=== PATIENT | male | born 1950 | race African-American/Black ===

== ENCOUNTER 2016-07-16 00:07 | Inpatient (IN) | payer OTHER ==
[2016-07-16 00:26] VITALS: BMI 31.7
--- NOTE | 2016-07-16 00:38 | PDOC ---
History of Present Illness - General History Source: Patient Exam Limitations: No Limitations - History of Present Illness Initial Comments: 07/16/16 00:46 The patient is a 65 year old male with significant past medical history of ME on brilinta, hypertension, hyperlipidemia, and diabetes who presents to the ED for chest pain prior to arrival. Patient reports he was eating around 10:30 pm and subsequently developed chest pain. He describes his chest pain as a 5/10 and pressure-like sensation at the midepigastric area radiating down the left arm. States he is compliant with his medications. Patient denies lightheadedness , diaphoresis, palpitations, SOB, jaw pain, leg swelling, nausea, or vomiting. The patient denies fever, chills, cough, and diarrhea. Allergies: NKDA Social History: No alcohol, tobacco, or drug use reported. Past Surgical History: None reported PCP: Dr. Marc Edgar <Misty Del Rio - Last Filed: 07/16/16 00:46> - General History Source: Patient <Romel Gordon - Last Filed: 07/16/16 19:26> - General Stated Complaint: CHEST PAIN, BLOOD SUGAR PROBLEM Time Seen by Provider: 07/16/16 00:34 Past History <Misty Del Rio - Last Filed: 07/16/16 00:46> - Past Medical History Diabetes: Yes HTN: Yes Hypercholesterolemia: Yes - Psycho/Social/Smoking Cessation Hx Suicidal Ideation: No Smoking History: Unknown if ever smoked Hx Alcohol Use: No Drug/Substance Use Hx: No <Romel Gordon - Last Filed: 07/16/16 19:26> - Past Medical History Allergies/Adverse Reactions: Allergies Allergy/AdvReac Type Severity Reaction Status Date / Time No Known Allergies Allergy Verified 01/23/16 04:03 Home Medications: Ambulatory Orders Amlodipine/Valsartan [Exforge 10-160 mg Tablet] 1 tab PO DAILY 01/23/16 Aspirin [ASA -] 162 mg PO DAILY 01/23/16 Atorvastatin Ca [Lipitor] 40 mg PO HS 01/23/16 Carvedilol [Coreg] 12.5 mg PO BID 01/23/16 Ranolazine [Ranexa] 1,000 mg PO BID 01/23/16 Sitagliptin Phosphate [Januvia] 100 mg PO DAILY 01/23/16 Ticagrelor [Brilinta] 90 mg PO BID 01/23/16 Glyburide/Metformin HCl [Glyburide-Metformin 5-500 mg] 1 tab PO BID 07/16/16 Review of Systems - Review of Systems Able to Perform ROS?: Yes Comments:: 07/16/16 00:46 CONSTITUTIONAL: Absent: fever, chills, diaphoresis, generalized weakness, malaise, loss of appetite HEENT: Absent: rhinorrhea, nasal congestion, throat pain, throat swelling, difficulty swallowing, mouth swelling, ear pain, eye pain, visual Changes CARDIOVASCULAR: +chest pain radiating down the left arm Absent: syncope, palpitations, irregular heart rate, lightheadedness, peripheral edema RESPIRATORY: Absent: cough, shortness of breath, dyspnea with exertion, orthopnea, wheezing, stridor, hemoptysis GASTROINTESTINAL: +epigastric discomfort Absent: abdominal distension, nausea, vomiting, diarrhea , constipation, melena, hematochezia GENITOURINARY: Absent: dysuria, frequency, urgency, hesitancy, hematuria, flank pain, genital pain MUSCULOSKELETAL: Absent: arthralgia, joint swelling SKIN: Absent: rash, itching, pallor NEUROLOGIC: Absent: headache, focal weakness or paresthesias, dizziness, unsteady gait, seizure, mental status changes, bladder or bowel incontinence <Misty Del Rio - Last Filed: 07/16/16 00:46> *Physical Exam - Vital Signs Last Vital Signs Temp Pulse Resp BP Pulse Ox 97.5 F L 75 16 172/92 99 07/16/16 00:10 07/16/16 00:10 07/16/16 00:10 07/16/16 00:10 07/16/16 00:10 - Physical Exam Comments: 07/16/16 00:46 GENERAL: Well developed, well nourished. Awake and alert. No acute distress. HEENT: Normocephalic, atraumatic. PERRLA, EOMI. No conjunctival pallor. Sclera are non- icteric. Moist mucous membranes. Oropharynx is clear. NECK: Supple. Full ROM. No JVD. Carotid pulses 2+ and symmetric, without bruits. No thyromegaly. No lymphadenopathy. CARDIOVASCULAR: Regular rate and rhythm. No murmurs, rubs, or gallops. Distal pulses are 2+ and symmetric. PULMONARY: No evidence of respiratory distress. Lungs clear to auscultation bilaterally. No wheezing, rales or rhonchi. ABDOMINAL: Soft. Non-tender. Non-distended. No rebound or guarding. No organomegaly. Normoactive bowel sounds. MUSCULOSKELETAL Normal range of motion at all joints. No bony deformities or tenderness. No CVA tenderness. EXTREMITIES: No cyanosis. No clubbing. No edema. No calf tenderness. SKIN: Warm and dry. Normal capillary refill. No rashes. No jaundice. NEUROLOGICAL: Alert, awake, appropriate. Cranial nerves 2-12 intact. Moving all extremities. No gross neurological deficits. <Misty Del Rio - Last Filed: 07/16/16 00:46> - Vital Signs Last Vital Signs Temp Pulse Resp BP Pulse Ox 97.5 F L 75 16 172/92 99 07/16/16 00:10 07/16/16 00:10 07/16/16 00:10 07/16/16 00:10 07/16/16 00:10 <Romel Gordon - Last Filed: 07/16/16 19:26> Heart Score/ECG Review - ECG Impressions Comment:: 07/16/16 00:47 NSR @87bpm L anterior fascicular block ST and T wave abnormality, consider lateral ischemia Abnormal ECG <Misty Del Rio - Last Filed: 07/16/16 00:46> - History History: Moderately suspicious - Electrocardiogram EKG: Non specific repolarization disturbance - Age Age: >/= 65 - Risk Factors Risk Factors Heart Score: Yes Hx Hypertension, Yes Hx Diabetes Based on the list above the patient has:: >/=3 risk factors or Hx atherosclerotic disease - Troponin Troponin: </= normal limit - Score Heart Score - Total: 6 <Romel Gordon - Last Filed: 07/16/16 19:26> ED Treatment Course - LABORATORY CBC & Chemistry Diagram: 07/16/16 06:08 07/16/16 06:08 <Romel Gordon - Last Filed: 07/16/16 19:26> Medical Decision Making - Medical Decision Making 07/16/16 19:26 Dr. Gordon: The scribe's documentation has been prepared under my direction and personally reviewed by me in its entirery. I confirm that the note above accurately reflects all work, treatment, procedures, and medical decision making performed by me. <Romel Gordon - Last Filed: 07/16/16 19:26> *DC/Admit/Observation/Transfer - Attestations Scribe Attestion: 07/16/16 00:46 Documentation prepared by Misty Del Rio, acting as medical surgery nurse for Romel Gordon MD/DO. <Misty Del Rio - Last Filed: 07/16/16 00:46> - Discharge Dispostion Admit: Yes <Romel Gordon - Last Filed: 07/16/16 19:26> Diagnosis at time of Disposition: NSTEMI (non-ST elevated myocardial infarction) Chest pain Qualifiers: Chest pain type: precordial pain Qualified Code(s): R07.2 - Precordial pain - Discharge Dispostion Disposition: TRANSFER ACUTE CARE/OTHER HOSP - Referrals
[2016-07-16] MEDS ORDERED: FAMOTIDINE 20 MG/50 ML IVPB 20 MG in PREMIX 50 IVPB ONE (00:39)
[2016-07-16] MEDS ORDERED: ASPIRIN 81 MG CHEWABLE TABLETS PO ONE (00:41)
[2016-07-16] MEDS ORDERED: NITROGLYCERIN 2% OINTMENT - 1GM PACKET TD ONE ×2 (00:41→00:54)
[2016-07-16] MEDS ORDERED: ASPIRIN 81 MG CHEWABLE TABLETS ONE (00:53)
[2016-07-16] MEDS ORDERED: FAMOTIDINE 20 MG/50 ML IVPB 50 ML IVPB ONE (00:54)
[2016-07-16 00:56] LABS: BASOPHIL 0.8 % (0-2.0); EOSINOPHIL 1.4 % (0-4.5); MCH 27.9 pg (25.7-33.7); MCHC 31.9 g/dl (32.0-35.9); MEAN CELL VOLUME 87.7 fl (80-96); MEAN PLT VOLUME 8.3 fl (7.5-11.1); NEUTROPHILS 70.9 % (42.8-82.8); PLATELET COUNT 347 K/MM3 (134-434); RDW 13.6 % (11.9-15.9)
[2016-07-16 01:17] LABS: INR 0.94 (0.82-1.09); PROTHROMBIN TIME (PATIENT) 10.3 SEC (9.98-11.88)
[2016-07-16 01:19] LABS: ALBUMIN 3.8 g/dl (3.4-5.0); ANION GAP 10 (8-16); CALCIUM 8.7 mg/dL (8.5-10.1); CO2 25 mmol/L (21-32); MAGNESIUM 2.2 mg/dL (1.8-2.4)
[2016-07-16 01:25] LABS: ALK PHOS 63 U/L (45-117); BILIRUBIN,TOTAL 0.3 mg/dL (0.2-1.0); COCKROFT - GAULT 52.04; CREATININE 1.9 mg/dL (0.7-1.3); SGOT/AST 19 U/L (15-37); SGPT/ALT 25 U/L (12-78); TOT PROT 7.4 g/dl (6.4-8.2)
[2016-07-16 01:28] LABS: GLUCOSE,RANDOM 387 mg/dL (74-106)
[2016-07-16] MEDS ORDERED: TICAGRELOR 90 MG TABLET PO STA (01:39)
[2016-07-16] MEDS ORDERED: METOPROLOL TARTRATE 5 MG/5 ML VIAL IVPUSH ONE (01:41)
[2016-07-16] MEDS ORDERED: TICAGRELOR 90 MG TABLET PO ONE (01:56)
[2016-07-16] MEDS ORDERED: METOPROLOL TARTRATE 5 MG/5 ML VIAL ONE (01:56)
[2016-07-16 02:02] LABS: ACETONE SERUM NEGATIVE (NEGATIVE)
[2016-07-16] MEDS ORDERED: INSULIN REGULAR HUMAN 100 UNITS/ML *VIAL SQ ONE (02:18)
[2016-07-16] MEDS ORDERED: INSULIN (NOVOLOG) ASPART 100 UNITS/ML 10ML VIAL ONE (02:24)
[2016-07-16 02:49] LABS: URINE APPEARANCE SLCLOUDY; URINE BILIRUBIN NEGATIVE (NEGATIVE); URINE BLOOD 1+ (NEGATIVE); URINE COLOR YELLOW; URINE GLUCOSE (UA) 3+ (NEGATIVE); URINE KETONE NEGATIVE (NEGATIVE); URINE LEUK ESTERASE NEGATIVE (NEGATIVE); URINE NITRITE NEGATIVE (NEGATIVE); URINE PROTEIN NEGATIVE (NEGATIVE); URINE UROBILINOGEN NEGATIVE E.U./dl (0.2-1.0)
[2016-07-16 02:50] LABS: URINE RBC 2 /hpf (0-3); URINE WBC <1 /hpf (3-5)
[2016-07-16] MEDS ORDERED: HEPARIN NA (PORCINE) 5,000 UNITS/ML 1ML VIAL IVPUSH PRN ×2 (03:24)
--- NOTE | 2016-07-16 03:26 | PN ---
<Nikita Buck - Last Filed: 07/16/16 03:25> Teaching Attending Note Name of Resident: Remi Blackwood ATTENDING PHYSICIAN STATEMENT I saw and evaluated the patient. I reviewed the resident's note and discussed the case with the resident. I agree with the resident's findings and plan as documented. SUBJECTIVE: OBJECTIVE: ASSESSMENT AND PLAN: <Rian Valenzuela - Last Filed: 07/16/16 04:09> Teaching Attending Note ATTENDING PHYSICIAN STATEMENT I saw and evaluated the patient. I reviewed the resident's note and discussed the case with the resident. I agree with the resident's findings and plan as documented. SUBJECTIVE: The patient is a 65 year old male with significant past medical history of AK, hypertension, hyperlipidemia, and diabetes who presented with chest pain. Patient noted pain started around 10:30 PM last night radiating down his left arm. He denied fever, chills, nausea, vomiting, diarrhea, or shortness of breath. OBJECTIVE: Last Vital Signs 3 Temp Pulse Resp BP Pulse Ox 97.5 F L 72 18 150/91 99 07/16/16 00:10 07/16/16 03:18 07/16/16 03:18 07/16/16 03:18 07/16/16 03:18 Physical Exam: GEN: NAD HEENT: NCAT, PERRL CARD: RRR, S1 S2 RESP: CTAB ABD: NT, BWS x4 EXT: - CCE Labs: CBCD 3 WBC 8.0 K/mm3 (4.0-10.0) 07/16/16 00:50 RBC 4.27 M/mm3 (4.00-5.60) 07/16/16 00:50 Hgb 11.9 GM/dL (11.7-16.9) 07/16/16 00:50 Hct 37.5 % (35.4-49) 07/16/16 00:50 MCV 87.7 fl (80-96) 07/16/16 00:50 MCHC 31.9 g/dl (32.0-35.9) L 07/16/16 00:50 RDW 13.6 % (11.9-15.9) 07/16/16 00:50 Plt Count 347 K/MM3 (134-434) 07/16/16 00:50 MPV 8.3 fl (7.5-11.1) 07/16/16 00:50 CMP 3 Sodium 137 mmol/L (136-145) 07/16/16 00:50 Potassium 4.4 mmol/L (3.5-5.1) 07/16/16 00:50 Chloride 102 mmol/L (98-107) 07/16/16 00:50 Carbon Dioxide 25 mmol/L (21-32) 07/16/16 00:50 Anion Gap 10 (8-16) 07/16/16 00:50 BUN 21 mg/dL (7-18) H 07/16/16 00:50 Creatinine 1.9 mg/dL (0.7-1.3) H 07/16/16 00:50 Creat Clearance w eGFR 35.54 (>60) 07/16/16 00:50 Calcium 8.7 mg/dL (8.5-10.1) 07/16/16 00:50 Total Bilirubin 0.3 mg/dL (0.2-1.0) 07/16/16 00:50 AST 19 U/L (15-37) 07/16/16 00:50 ALT 25 U/L (12-78) 07/16/16 00:50 Alkaline Phosphatase 63 U/L (45-117) 07/16/16 00:50 Total Protein 7.4 g/dl (6.4-8.2) 07/16/16 00:50 Albumin 3.8 g/dl (3.4-5.0) 07/16/16 00:50 Imaging: EXAM: CT abdomen and pelvis without contrast IMAGES: 490 INDICATION: Elevated lipase. Rule out pancreatitis. DATE OF SERVICE: 2016-07-16 02:24:15.0 COMPARISON: none FINDINGS: Lung bases are clear. The visualized cardiac chambers are normal size and configuration. Mild right hydronephrosis is noted without an obstructing stone. Small nonobstructing parenchymal stones is noted. Patient may have recently passed a stone although the difference could be due to bladder distention. There is bilateral perinephric stranding, possibly chronic, although pyelonephritis is not excluded. Normal unenhanced liver, gallbladder, pancreas, spleen, adrenal glands . The stomach and abdominal small and large bowel are notable for a large amount of diffuse sulcal stool. There is no aortic aneurysm. There is no significant retroperitoneal lymphadenopathy. The pelvic small and large bowel are normal. The appendix is normal. The urinary bladder is distended and inflamed. The prostate gland is normal. No pelvic free fluid is identified. There is no significant pelvic lymphadenopathy. IMPRESSION: No CT findings for pancreatitis. Large amount of diffuse solid stool. Mild right hydronephrosis could be due to bladder distention or a recently passed stone and can be correlated with urinalysis. Bilateral perinephric stranding may be chronic, although pyelonephritis is not excluded. THIS DOCUMENT HAS BEEN ELECTRONICALLY SIGNED Edgar Hdez MD Exam: Chest X-ray. Impression: Pending official report. Exam: ECG. Impression: NSR @87bpm, L anterior fascicular block. ST and T wave abnormality, consider lateral ischemia. Abnormal ECG ASSESSMENT AND PLAN: The patient is a 65 year old male with significant past medical history of AK, hypertension, hyperlipidemia, and diabetes who presented with chest pain. 1. Chest pain - NSTEMI - Heparin GTT - Continue with brilinta - Aspirin - O2 2L NC - Morphine/Nitro prn pain - Trend trop ecg - Cardiology consult - ECHO - Check lipid panel - Heart score 6 2. Acute kidney injury - Urine lytes - Gentle IVF 3. Diabetes - Hold metformin/glyburide - Sliding scale - Finger sticks Q4H - Hold ginosplinten 4. CAD - post AK - Continue aspirin - Continue statin - Continue Ranolazine Admit to med tele. Documentation prepared by Rian Valenzuela, acting as medical insurance coder for Dr. Nikita Buck MD.
[2016-07-16] MEDS ORDERED: HEPARIN - 25,000 UNIT in SODIUM CHLORIDE 495 ML IV SCH (03:30)
[2016-07-16] MEDS ORDERED: HEPARIN INFUSION - 500 ML IVPB ONE (03:37)
--- NOTE | 2016-07-16 04:13 | HP ---
CHIEF COMPLAINT: chest pain PCP: Dr. Marc Edgar; Cardio: Dr. Marcel Edgar HISTORY OF PRESENT ILLNESS: 65 y/o M w/PMH of [place] x2 (2005 s/p 2 stents, 2013 s/p 1 stent), CVA, HTN, HLD, DM presents to ER with c/o chest pain/pressure. Pt states he finished eating dinner this evening and while cleaning afterwards felt chest pressure in mid to substernal region along with diaphoresis and pain in L arm. Pain was rated at 5/ 10 in chest and was similar in presentation to when he RI's in the past. Pain was unchanged with exertion and was alleviated somewhat with nitro at home. He states he is not completely compliant with insulin therapy but takes all other medications as prescribed. He states he had an echo 6 months and states it was "normal". He denies SOB, numbness or weakness in arms or legs, abd pain, fevers , chills, nausea, vomiting, sick contacts. ER course was notable for: (1) ASA, EKG, Heparin drip (2) (3) Recent Travel: denies PAST MEDICAL HISTORY: RI x2 (2005 s/p 2 stents, 2013 s/p 1 stent), CVA, HTN, HLD , DM PAST SURGICAL HISTORY: s/p 3 stents; 2 in 2005, 1 in 2013 Social History: Smoking: quit in 2005. Smoked 0.5-1ppd for 10 years Alcohol: "few beers a few times per week" Drugs: denies Family History: Mother RI in her 80s Allergies No Known Allergies Allergy (Verified 01/23/16 04:03) HOME MEDICATIONS: Home Medications Medication Instructions Recorded Amlodipine/Valsartan [Exforge 1 tab PO DAILY 01/23/16 10-160 mg Tablet] Aspirin [ASA -] 162 mg PO DAILY 01/23/16 Atorvastatin Ca [Lipitor] 40 mg PO HS 01/23/16 Carvedilol [Coreg] 12.5 mg PO BID 01/23/16 Ranolazine [Ranexa] 1,000 mg PO BID 01/23/16 Sitagliptin Phosphate [Januvia] 100 mg PO DAILY 01/23/16 Ticagrelor [Brilinta] 90 mg PO BID 01/23/16 Glyburide/Metformin HCl 1 tab PO BID 07/16/16 [Glyburide-Metformin 5-500 mg] REVIEW OF SYSTEMS CONSTITUTIONAL: +diaphoresis Absent: fever, chills HEENT: Absent: throat pain, throat swelling, difficulty swallowing CARDIOVASCULAR: +chest pain w/ radiation to L arm Absent: chest pain, lightheadedness, peripheral edema RESPIRATORY: Absent: cough, shortness of breath, dyspnea with exertion GASTROINTESTINAL: +constipation (chronic) Absent: abdominal pain, abdominal distension, nausea, vomiting, diarrhea GENITOURINARY: Absent: dysuria, frequency NEUROLOGIC: Absent: headache, focal weakness or paresthesias, dizziness PSYCHIATRIC: Absent: anxiety, depression PHYSICAL EXAMINATION Vital Signs - 24 hr 07/16/16 07/16/16 07/16/16 00:10 01:00 02:00 Temperature 97.5 F L Pulse Rate 75 87 Pulse Rate [ 91 H Apical] Respiratory 16 16 Rate Blood Pressure 172/92 177/99 Blood Pressure 179/102 [Left Arm] Blood Pressure 176/98 [Right Arm] O2 Sat by Pulse 99 99 Oximetry (%) 07/16/16 07/16/16 02:36 03:18 Temperature Pulse Rate Pulse Rate [ 81 72 Apical] Respiratory 16 18 Rate Blood Pressure Blood Pressure 150/91 [Left Arm] Blood Pressure 159/89 [Right Arm] O2 Sat by Pulse 99 99 Oximetry (%) GENERAL: Awake, alert, and fully oriented, in no acute distress. HEAD: Normal with no signs of trauma. EYES: extraocular movements intact, sclera anicteric, conjunctiva clear. No lid lag. EARS, NOSE, THROAT: Ears normal, nares patent, Moist mucous membranes. NECK: Normal range of motion, supple LUNGS: Breath sounds equal, clear to auscultation bilaterally. No wheezes, and no crackles. No accessory muscle use. HEART: Regular rate and rhythm, normal S1 and S2 without murmur, rub or gallop. ABDOMEN: +mild diffuse abd tenderness, Soft, obese, normoactive bowel sounds, no guarding, no rebound, no masses. No hepatomegaly or splenomegaly. MUSCULOSKELETAL: Normal range of motion at all joints. No bony deformities LOWER EXTREMITIES: 2+ pulses, warm, well-perfused. No calf tenderness. No peripheral edema. NEUROLOGICAL: Normal speech.Gait not observed. PSYCHIATRIC: Cooperative. Good eye contact. Appropriate mood and affect. SKIN: Warm, dry, no rashes or lesions noted Laboratory Results - last 24 hr 07/16/16 07/16/16 07/16/16 00:50 00:50 00:50 WBC 8.0 RBC 4.27 Hgb 11.9 Hct 37.5 MCV 87.7 MCHC 31.9 L RDW 13.6 Plt Count 347 MPV 8.3 Neutrophils % 70.9 Lymphocytes % 18.3 Monocytes % 8.6 Eosinophils % 1.4 Basophils % 0.8 INR 0.94 Sodium 137 Potassium 4.4 Chloride 102 Carbon Dioxide 25 Anion Gap 10 BUN 21 H Creatinine 1.9 H Creat Clearance w eGFR 35.54 POC Glucometer Random Glucose 387 H* Calcium 8.7 Magnesium 2.2 Total Bilirubin 0.3 AST 19 ALT 25 Alkaline Phosphatase 63 Creatine Kinase 192 Creatine Kinase Index 2.1 CK-MB (CK-2) 3.963 H CK-MB (CK-2) Rel Index Troponin I 0.30 H B-Natriuretic Peptide 644.25 H Total Protein 7.4 Albumin 3.8 Lipase 427 H Urine Color Urine Appearance Urine pH Urine Protein Urine Glucose (UA) Urine Ketones Urine Blood Urine Nitrite Urine Bilirubin Urine Urobilinogen Ur Leukocyte Esterase Urine RBC Urine WBC Ur Epithelial Cells Acetone, Qual Negative 07/16/16 07/16/16 07/16/16 00:50 02:16 02:40 WBC RBC Hgb Hct MCV MCHC RDW Plt Count MPV Neutrophils % Lymphocytes % Monocytes % Eosinophils % Basophils % INR Sodium Potassium Chloride Carbon Dioxide Anion Gap BUN Creatinine Creat Clearance w eGFR POC Glucometer > 400 Random Glucose Calcium Magnesium Total Bilirubin AST ALT Alkaline Phosphatase Creatine Kinase Creatine Kinase Index CK-MB (CK-2) CK-MB (CK-2) Rel Index Cancelled Troponin I B-Natriuretic Peptide Total Protein Albumin Lipase Urine Color Yellow Urine Appearance Slcloudy Urine pH 7.0 Urine Protein Negative Urine Glucose (UA) 3+ H Urine Ketones Negative Urine Blood 1+ H Urine Nitrite Negative Urine Bilirubin Negative Urine Urobilinogen Negative Ur Leukocyte Esterase Negative Urine RBC 2 Urine WBC <1 Ur Epithelial Cells Rare Acetone, Qual EKG: July 16, 2016 NSR @ 87 bpm; QTc 425 ms Left anterior fasicular block T wave inversions in V4, V5, V6 Imaging: EXAM: CT abdomen and pelvis without contrast IMAGES: 490 INDICATION: Elevated lipase. Rule out pancreatitis. DATE OF SERVICE: 2016-07-16 02:24:15.0 COMPARISON: none FINDINGS: Lung bases are clear. The visualized cardiac chambers are normal size and configuration. Mild right hydronephrosis is noted without an obstructing stone. Small nonobstructing parenchymal stones is noted. Patient may have recently passed a stone although the difference could be due to bladder distention. There is bilateral perinephric stranding, possibly chronic, although pyelonephritis is not excluded. Normal unenhanced liver, gallbladder, pancreas, spleen, adrenal glands . The stomach and abdominal small and large bowel are notable for a large amount of diffuse sulcal stool. There is no aortic aneurysm. There is no significant retroperitoneal lymphadenopathy. The pelvic small and large bowel are normal. The appendix is normal. The urinary bladder is distended and inflamed. The prostate gland is normal. No pelvic free fluid is identified. There is no significant pelvic lymphadenopathy. IMPRESSION: No CT findings for pancreatitis. Large amount of diffuse solid stool. Mild right hydronephrosis could be due to bladder distention or a recently passed stone and can be correlated with urinalysis. Bilateral perinephric stranding may be chronic, although pyelonephritis is not excluded. THIS DOCUMENT HAS BEEN ELECTRONICALLY SIGNED Edgar Hdez MD ASSESSMENT/PLAN: 65 y/o M w/PMH of [place] x2 (2005 s/p 2 stents, 2013 s/p 1 stent), CVA, HTN, HLD, DM presents to ER with c/o chest pain/pressure. Admitted to tele for NSTEMI. -Chest pain secondary to NSTEMI -C/w brilinta, aspirin -c/w carvedilol -Atorvastatin 80 mg qhs -Heparin drip, f/u PTT -Morphine and nitro for pain management -O2 supplementation via nasal cannula -Trend trops, EKG in AM -Initial trop 0.3 -Heart score 6, HERRERA score 7 -f/u lipid panel, Mg, TSH -cardiology consulted -echo ordered -FIONA -NS @ 75 ml/hr -f/u urine lytes -monitor Cr -DM -BGMs Q4H, ISS -held home meds -Hx of CAD -c/w asa, on atorvastatin -c/w ranexa -DVT ppx -on heparin drip -FEN -NS @ 75 ml/hr -monitor electrolytes -Dispo: -Admit to tele
[2016-07-16] MEDS ORDERED: SODIUM CHLORIDE 1,000 ML IV SCH (05:00)
[2016-07-16] MEDS ORDERED: INSULIN SLIDING SCALE (NOVOLOG) 1 VIAL SQ SCH ×2 (05:00→07:00)
[2016-07-16] MEDS ORDERED: morphine CARPU-JECT 2 MG/1 ML DISP.SYRIN IVPUSH PRN (06:18)
[2016-07-16] MEDS ORDERED: NITROGLYCERIN SUBLINGUAL 1/150 0.4 MG TAB SL PRN (06:19)
[2016-07-16 06:58] LABS: BASOPHIL 0.5 % (0-2.0); EOSINOPHIL 1.2 % (0-4.5); MCH 28.9 pg (25.7-33.7); MCHC 33.3 g/dl (32.0-35.9); MEAN CELL VOLUME 86.8 fl (80-96); MEAN PLT VOLUME 8.3 fl (7.5-11.1); NEUTROPHILS 64.8 % (42.8-82.8); PLATELET COUNT 301 K/MM3 (134-434); RDW 13.1 % (11.9-15.9); WHITE BLOOD COUNT 7.4 K/mm3 (4.0-10.0)
[2016-07-16] MEDS: INSULIN SLIDING SCALE (NOVOLOG) 1 VIAL SQ SCH ×2 (07:02→11:14)
[2016-07-16 07:14] LABS: INR 0.99 (0.82-1.09); PROTHROMBIN TIME (PATIENT) 10.9 SEC (9.98-11.88)
[2016-07-16 07:42] LABS: ALBUMIN 3.9 g/dl (3.4-5.0); CALCIUM 8.7 mg/dL (8.5-10.1); MAGNESIUM 2.3 mg/dL (1.8-2.4)
[2016-07-16 07:46] LABS: BILIRUBIN,TOTAL 0.4 mg/dL (0.2-1.0); COCKROFT - GAULT 61.79; CREATININE 1.6 mg/dL (0.7-1.3); TOT PROT 7.1 g/dl (6.4-8.2)
[2016-07-16 07:50] LABS: THYROID STIMULATING HORMONE 0.77 uIU/ml (0.358-3.74)
[2016-07-16] MEDS ORDERED: VALSARTAN 160 MG TABLET (UD) PO SCH (10:00)
[2016-07-16] MEDS ORDERED: PATIENT'S OWN MEDICATION (NON-FORMULARY) (Amlodipine/Valsartan [Exforge 10-160 Mg Tablet] PO SCH (10:00)
[2016-07-16] MEDS ORDERED: CARVEDILOL 12.5 MG TABLET (FP) PO SCH (10:00)
[2016-07-16] MEDS ORDERED: amLODIPine BESYLATE 10 MG TABLET (FP) PO SCH (10:00)
[2016-07-16] MEDS ORDERED: ASPIRIN COATED 81 MG TABLET.EC PO SCH (10:00)
[2016-07-16] MEDS ORDERED: ASPIRIN 325 MG TABLET PO SCH (10:00)
[2016-07-16] MEDS ORDERED: TICAGRELOR 90 MG TABLET PO SCH (10:00)
--- NOTE | 2016-07-16 10:14 | CON.CARD ---
Consult Consult Specialty:: Cardiology Referred by:: Hospitalist Medicine Reason for Consultation:: [place]/NSTEMI - History of Present Illness Chief Complaint: Chest pain History of Present Illness: 65 y/o AAM with h/o CAD s/p [place] x2 (2005 s/p 2 stents, 2013 s/p 1 stent), CVA, HTN, HLD, DM initially presented overnight to ER with c/o retrosternal chest pain/pressure along with diaphoresis and pain radiating L arm starting last night since improving. Pain was unchanged with exertion and was alleviated somewhat with nitro at home. He states he is not completely compliant with insulin therapy, but takes all other medications as prescribed. He states he had an echo 6 months and states it was "normal". He denies associated SOB, near or true syncope, palpitations, orthopnea, PND or LE edema. Recent Travel: denies PAST MEDICAL HISTORY: [place] x2 (2005 s/p 2 stents, 2013 s/p 1 stent), CVA, HTN, HLD , DM PAST SURGICAL HISTORY: s/p 3 stents; 2 in 2005, 1 in 2013 Social History: Smoking: quit in 2005. Smoked 0.5-1ppd for 10 years Alcohol: "few beers a few times per week" Drugs: denies Family History: Mother [place] in her 80s Allergies No Known Allergies Allergy (Verified 01/23/16 04:03) - History Source History Provided By: Patient Limitations to Obtaining History: No Limitations - Past Medical History Cardio/Vascular: Yes: CAD, HTN, [place] Endocrine: Yes: Diabetes Mellitus - Alcohol/Substance Use Hx Alcohol Use: No - Smoking History Smoking history: Unknown if ever smoked Home Medications - Allergies Allergies/Adverse Reactions: Allergies Allergy/AdvReac Type Severity Reaction Status Date / Time No Known Allergies Allergy Verified 01/23/16 04:03 - Home Medications Home Medications: Ambulatory Orders Amlodipine/Valsartan [Exforge 10-160 mg Tablet] 1 tab PO DAILY 01/23/16 Aspirin [ASA -] 162 mg PO DAILY 01/23/16 Atorvastatin Ca [Lipitor] 40 mg PO HS 01/23/16 Carvedilol [Coreg] 12.5 mg PO BID 01/23/16 Ranolazine [Ranexa] 1,000 mg PO BID 01/23/16 Sitagliptin Phosphate [Januvia] 100 mg PO DAILY 01/23/16 Ticagrelor [Brilinta] 90 mg PO BID 01/23/16 Glyburide/Metformin HCl [Glyburide-Metformin 5-500 mg] 1 tab PO BID 07/16/16 Review of Systems - Review of Systems Cardiovascular: reports: Chest Pain - Risk Factors Known Risk Factors: Yes: Prior [place] /Emb Stroke Vital Signs: Vital Signs Temperature 98.5 F 07/16/16 06:57 Pulse Rate 69 07/16/16 06:57 Respiratory Rate 18 07/16/16 06:57 Blood Pressure 103/74 07/16/16 06:57 O2 Sat by Pulse Oximetry (%) 96 07/16/16 06:57 Constitutional: Yes: No Distress, Calm Neck: Yes: Supple Respiratory: Yes: Regular, CTA Bilaterally Gastrointestinal: Yes: Normal Bowel Sounds, Soft Cardiovascular: Yes: Regular Rate and Rhythm JVD: No Carotid Bruit: No Heart Sounds: Yes: S1, S2 Edema: No - Other Data Labs, Other Data: CBC, BMP 07/16/16 06:08 07/16/16 06:08 INR, PTT INR 0.99 (0.82-1.09) 07/16/16 06:08 Troponin, BNP 07/16/16 06:08 Troponin I 54.00 H* D Troponin, BNP 07/16/16 06:08 Troponin I 54.00 H* D NSR lateral ST changes Prior Cardiac Procedures: PTCA with Stent Imaging - Results Cat Scan: Report Reviewed (EXAM: CT abdomen and pelvis without contrast IMAGES : 490 INDICATION: Elevated lipase. Rule out pancreatitis. DATE OF SERVICE: 2016-07-16 02:24:15.0 COMPARISON: none FINDINGS: Lung bases are clear. The visualized cardiac chambers are normal size and configuration. Mild right hydronephrosis is noted without an obstructing stone. Small nonobstructing parenchymal stones is noted. Patient may have recently passed a stone although the difference could be due to bladder distention. There is bilateral perinephric stranding, possibly chronic, although pyelonephritis is not excluded. Normal unenhanced liver, gallbladder, pancreas, spleen, adrenal glands . The stomach and abdominal small and large bowel are notable for a large amount of diffuse sulcal stool. There is no aortic aneurysm. There is no significant retroperitoneal lymphadenopathy. The pelvic small and large bowel are normal. The appendix is normal. The urinary bladder is distended and inflamed. The prostate gland is normal. No pelvic free fluid is identified. There is no significant pelvic lymphadenopathy. IMPRESSION: No CT findings for pancreatitis. Large amount of diffuse solid stool. Mild right hydronephrosis could be due to bladder distention or a recently passed stone and can be correlated with urinalysis. Bilateral perinephric stranding may be chronic, although pyelonephritis is not excluded. THIS DOCUMENT HAS BEEN ELECTRONICALLY SIGNED Edgar Hdez MD Exam:) EKG: Report Reviewed (Chest X-ray. Impression: Pending official report. Exam: ECG. Impression: NSR @87bpm, L anterior fascicular block. ST and T wave abnormality, consider lateral ischemia. Abnormal ECG) Problem List - Problems (1) NSTEMI (non-ST elevated myocardial infarction) Code(s): I21.4 - NON-ST ELEVATION (NSTEMI) MYOCARDIAL INFARCTION (2) Coronary artery disease Code(s): I25.10 - ATHSCL HEART DISEASE OF [place] CORONARY ARTERY W/O ANG PCTRS Qualifiers: Coronary Disease-Associated Artery/Lesion type: [place] artery [place] vs. transplanted heart: [place] heart Associated angina: with unstable angina Qualified Code(s): I25.110 - Atherosclerotic heart disease of [place] coronary artery with unstable angina pectoris (3) S/P coronary artery stent placement Code(s): Z95.5 - PRESENCE OF CORONARY ANGIOPLASTY IMPLANT AND GRAFT (4) Hyperlipidemia Code(s): E78.5 - HYPERLIPIDEMIA, UNSPECIFIED Qualifiers: Hyperlipidemia type: pure hypercholesterolemia Qualified Code(s): E78.00 - Pure hypercholesterolemia, unspecified; E78.0 - Pure hypercholesterolemia (5) Type 2 diabetes mellitus Code(s): E11.9 - TYPE 2 DIABETES MELLITUS WITHOUT COMPLICATIONS Qualifiers: Diabetes mellitus complication status: without complication Diabetes mellitus 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 CAD h/o [place] PCI (stent), s/p [place]/NSTEMI 2. HTN/HCVD 3. CKD 4. Type 2 DM 5. Hyperlipidemia 6. CKD vs Acute on CKD P:1. Transfer to [facility] for [facility]PCI to define coronary anatomy, at risk for OSIRIS, pre-hydrate 2. Continue ASA, heparin gtt, Brilinta, Lipitor, Ranexa, Norvasc, hold Diovan pending renal fxn stabilization 3. 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 Marcel Edgar has been notified 4. Thank you for consultative opportunity
[2016-07-16 11:57] VITALS: BP 141/91; PULSE 72; TEMP 98.6
--- NOTE | 2016-07-16 12:35 | EKG ---
Test Reason : Blood Pressure : / mmHG Vent. Rate : 087 BPM Atrial Rate : 087 BPM P-R Int : 140 ms QRS Dur : 086 ms QT Int : 354 ms P-R-T Axes : 066 -51 -30 degrees QTc Int : 425 ms POOR DATA QUALITY, INTERPRETATION MAY BE ADVERSELY AFFECTED NORMAL SINUS RHYTHM LEFT ANTERIOR FASCICULAR BLOCK ABNORMAL ECG NO PREVIOUS ECGS AVAILABLE Confirmed by LYNDON DALLAS, MARISSA ([id number]) on 07/16/2016 12:35:34 PM Referred By: Confirmed By:MARISSA HANEY MD
--- NOTE | 2016-07-16 15:04 | DS ---
Physical Exam: SUBJECTIVE: Patient seen and examined by me at bedside. Patient reports having midsternal chest pain prior to examining him. Patient now has some relief of symptoms. Patient denies the pain feels the same when he had his previous. Patient however denies fever, chills, nausea, vomiting, palpitations, shortness of breath. OBJECTIVE: Vital Signs Period Temp Pulse Resp BP Sys/Siddiqui Pulse Ox Last 24 Hr 98.2 F-98.6 F 69-72 18-20 103-151/74-91 94-100 PHYSICAL EXAM GENERAL: The patient is awake, alert, and fully oriented, in no acute distress. EYES: Sclera anicteric, conjunctiva clear. NECK: No bruit appreciated LUNGS: Breath sounds equal, clear to auscultation bilaterally, no wheezes, no crackles, no accessory muscle use. HEART: Regular rate and rhythm, normal S1 and S2 without murmur, rub or gallop. ABDOMEN: Soft, nontender, nondistended, normoactive bowel sounds, no guarding. EXTREMITIES: No peripheral edema. LABS Laboratory Results - last 24 hr 07/16/16 07/16/16 07/16/16 06:08 06:08 06:08 WBC 7.4 RBC 4.19 Hgb 12.1 Hct 36.3 MCV 86.8 MCHC 33.3 RDW 13.1 Plt Count 301 MPV 8.3 Neutrophils % 64.8 Lymphocytes % 22.1 D Monocytes % 11.4 H Eosinophils % 1.2 Basophils % 0.5 INR Sodium 138 Potassium 4.0 Chloride 105 Carbon Dioxide 24 Anion Gap 9 BUN 21 H Creatinine 1.6 H Creat Clearance w eGFR 43.33 POC Glucometer Random Glucose 238 H D Calcium 8.7 Magnesium 2.3 Total Bilirubin 0.4 D AST 168 H D ALT 36 D Alkaline Phosphatase 63 Troponin I Total Protein 7.1 Albumin 3.9 Triglycerides 156 Cholesterol 139 Total LDL Cholesterol 84 HDL Cholesterol 42 TSH 0.77 07/16/16 07/16/16 07/16/16 06:08 06:08 06:08 WBC RBC Hgb Hct MCV MCHC RDW Plt Count MPV Neutrophils % Lymphocytes % Monocytes % Eosinophils % Basophils % INR 0.99 Sodium Potassium Chloride Carbon Dioxide Anion Gap BUN Creatinine Creat Clearance w eGFR POC Glucometer Random Glucose Calcium Magnesium Total Bilirubin AST ALT Alkaline Phosphatase Troponin I 54.00 H* D Total Protein Albumin Triglycerides Cancelled Cholesterol Cancelled Total LDL Cholesterol Cancelled HDL Cholesterol Cancelled TSH EKG (07/16/16): NSR @ 87 bpm; QTc 425 ms. Left anterior fasicular block. T wave inversions in V4, V5, V6 CT abdomen and pelvis without contrast (07/16/16): Lung bases are clear. The visualized cardiac chambers are normal size and configuration. Mild right hydronephrosis is noted without an obstructing stone. Small nonobstructing parenchymal stones is noted. Patient may have recently passed a stone although the difference could be due to bladder distention. There is bilateral perinephric stranding, possibly chronic, although pyelonephritis is not excluded. Normal unenhanced liver, gallbladder, pancreas, spleen, adrenal glands . The stomach and abdominal small and large bowel are notable for a large amount of diffuse sulcal stool. There is no aortic aneurysm. There is no significant retroperitoneal lymphadenopathy. The pelvic small and large bowel are normal. The appendix is normal. The urinary bladder is distended and inflamed. The prostate gland is normal. No pelvic free fluid is identified. There is no significant pelvic lymphadenopathy. IMPRESSION: No CT findings for pancreatitis. Large amount of diffuse solid stool. Mild right hydronephrosis could be due to bladder distention or a recently passed stone and can be correlated with urinalysis. Bilateral perinephric stranding may be chronic, although pyelonephritis is not excluded. THIS DOCUMENT HAS BEEN ELECTRONICALLY SIGNED Edgar Hdez MD HOSPITAL COURSE: Patient is a 65 year old male with a PMHx of [place] x2 s/p three stents in total ( 2005, 2013), CVA, HTN, HLD, DMII who presented for retrosternal chest pain described as a pressure like pain radiating to the left arm with mild alleviation with nitro. Patient had a borderline initial troponin of 0.3 and was admitted for cardiac monitoring for NSTEMI. Patient was started on a Heparin drip and ASA. Patient's second Troponin was 54 and bee raiser recommended immediate transfer for Left Cardiac catheterization and possoble PCI. Patient was accepted to [facility] and will continue Heparin drip, ASA, Brilinta, Lipitor, Ranexa, and Norvasc. Patient transferred to [facility]. Date of Admission:07/16/16 Date of Discharge: 07/16/16 Minutes to complete discharge: 35 Discharge Summary Reason For Visit: NSTEMI CHEST PAIN - Instructions Referrals: Marc Edgar [Primary Care Provider] - Disposition: TRANSFER ACUTE CARE/OTHER HOSP - Home Medications Comprehensive Discharge Medication List: Ambulatory Orders Amlodipine/Valsartan [Exforge 10-160 mg Tablet] 1 tab PO DAILY 01/23/16 Aspirin [ASA -] 162 mg PO DAILY 01/23/16 Atorvastatin Ca [Lipitor] 40 mg PO HS 01/23/16 Carvedilol [Coreg] 12.5 mg PO BID 01/23/16 Ranolazine [Ranexa] 1,000 mg PO BID 01/23/16 Sitagliptin Phosphate [Januvia] 100 mg PO DAILY 01/23/16 Ticagrelor [Brilinta] 90 mg PO BID 01/23/16 Glyburide/Metformin HCl [Glyburide-Metformin 5-500 mg] 1 tab PO BID 07/16/16 This patient is new to me today: Yes Date on this admission: 07/16/16 Emergency Visit: Yes ED Registration Date: 07/16/16 Care time: The patient presented to the Emergency Department on the above date and was hospitalized for further evaluation of their emergent condition. Critical Care patient: Yes Total Critical Care Time (in minutes): 35 Critical Care Statement: The care of this patient involved high complexity decision making to prevent further life threatening deterioration of the patient 's condition and/or to evalute & treat vital organ system(s) failure or risk of failure. - Discharge Referral Referred to [facility] Med P.C.: No
[2016-07-16] MEDS ORDERED: ATORVASTATIN CA 80 MG TABLET (FP) PO SCH (22:00)
--- NOTE | 2016-07-17 10:01 | PN ---
Progress Note (short form) - Note Progress Note: On 07/16/2016, patient underwent LHC demonstrating 100% thrombotic LCx-OM treated with PTCA and implant 2.5x16 Synergy PAUL @ 14 CALI, 95% RPDA lesion planned for staged PCI due to recent h/o acute on CKD. Low normal LV fxn with low LVEDP. 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 Edgar's service at [facility]. Problem List - Problems (1) NSTEMI (non-ST elevated myocardial infarction) Code(s): I21.4 - NON-ST ELEVATION (NSTEMI) MYOCARDIAL INFARCTION (2) Coronary artery disease Code(s): I25.10 - ATHSCL HEART DISEASE OF [place] CORONARY ARTERY W/O ANG PCTRS Qualifiers: Coronary Disease-Associated Artery/Lesion type: [place] artery [place] vs. transplanted heart: [place] heart Associated angina: with unstable angina Qualified Code(s): I25.110 - Atherosclerotic heart disease of [place] coronary artery with unstable angina pectoris (3) S/P coronary artery stent placement Code(s): Z95.5 - PRESENCE OF CORONARY ANGIOPLASTY IMPLANT AND GRAFT (4) Hyperlipidemia Code(s): E78.5 - HYPERLIPIDEMIA, UNSPECIFIED Qualifiers: Hyperlipidemia type: pure hypercholesterolemia Qualified Code(s): E78.00 - Pure hypercholesterolemia, unspecified; E78.0 - Pure hypercholesterolemia (5) Type 2 diabetes mellitus Code(s): E11.9 - TYPE 2 DIABETES MELLITUS WITHOUT COMPLICATIONS Qualifiers: Diabetes mellitus complication status: without complication 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
--- NOTE | 2016-07-17 10:35 | EKG ---
Test Reason : Blood Pressure : / mmHG Vent. Rate : 070 BPM Atrial Rate : 070 BPM P-R Int : 144 ms QRS Dur : 090 ms QT Int : 414 ms P-R-T Axes : 049 -52 -78 degrees QTc Int : 447 ms NORMAL SINUS RHYTHM LEFT ANTERIOR FASCICULAR BLOCK ABNORMAL ECG WHEN COMPARED WITH ECG OF 16-JUL-2016 00:16, NO SIGNIFICANT CHANGE WAS FOUND Confirmed by PARAG DALLAS, RIGO ([id number]) on 07/17/2016 10:35:05 AM Referred By: KARSTEN GONZALES Confirmed By:RIGO TUTTLE MD
== END 2016-07-16 11:58 | disposition short-term general hospital (02) | DRG 281 ==
LOC: JER 00:07 → JERBED 03:19 → J4W 09:38
PROVIDERS: ADMIT Internal Medicine; ATTEND Internal Medicine
DX: I21.4 Non-ST elevation (NSTEMI) myocardial infarction (principal); N17.9 Acute kidney failure, unspecified; N13.30 Unspecified hydronephrosis; I25.10 Atherosclerotic heart disease of native coronary artery without angina pectoris; Z98.61 Coronary angioplasty status; E78.5 Hyperlipidemia, unspecified; R07.9 Chest pain, unspecified; Z86.73 Personal history of transient ischemic attack (TIA), and cerebral infarction without residual deficits; I13.10 Hypertensive heart and chronic kidney disease without heart failure, with stage 1 through stage 4 chronic kidney disease, or unspecified chronic kidney disease; E11.22 Type 2 diabetes mellitus with diabetic chronic kidney disease; N18.9 Chronic kidney disease, unspecified; I44.4 Left anterior fascicular block
CPT/HCPCS: 36415; 71010-TC; 74176-TC; 80053; 80061; 81003; 81015; 82009; 82550; 82553; 83690; 83721; 83735; 83880; 84443; 84484; 85025; 85610; 87086; 93005; 93010; 93306-TC; 99285-25; J1644